=== PATIENT | male | born 1945 | race Caucasian/White ===

== ENCOUNTER → 2024-06-26 07:11 | Outpatient (REF) | payer OTHER, SELFPAY | LOC: HWRAD 07:11 | PROVIDERS: ATTENDING PHYSICIAN Nurse Practitioner Family; FAMILY PHYSICIAN Family Medicine | DX: E03.0 Congenital hypothyroidism with diffuse goiter (principal) | CPT/HCPCS: 76536 ==

== ENCOUNTER → 2025-01-18 14:32 | Outpatient (REF) | payer OTHER, SELFPAY | LOC: RCS 14:32 | PROVIDERS: ATTENDING PHYSICIAN Family Medicine | DX: I25.10 Atherosclerotic heart disease of native coronary artery without angina pectoris (principal); I45.2 Bifascicular block; I10 Essential (primary) hypertension | CPT/HCPCS: 93306 ==